=== PATIENT | female | born 2000 | race African-American/Black ===

== ENCOUNTER 2025-06-08 16:59 | Emergency (ER) | payer OTHER ==
[2025-06-08] MEDS ORDERED: Bacitracin 1 PK ONE (17:46)
== END 2025-06-08 18:04 | disposition home or self-care (01) ==
LOC: CSHERS 16:59
DX: T24.111A Burn of first degree of right thigh, initial encounter (principal); X10.1XXA Contact with hot food, initial encounter
CPT/HCPCS: 16000; 99283

== ENCOUNTER 2025-09-23 21:45 | Day surgery (SDC) | payer OTHER ==
[2025-09-23 22:02] VITALS: BMI 34.3
[2025-09-24] MEDS ORDERED: hydrALAZINE 20 MG/ML VIAL SLOW IVP PRN (00:39)
== END 2025-09-24 00:48 | disposition home or self-care (01) ==
LOC: CSHLD/OP 21:45
PROVIDERS: ATTEND Obstetrics & Gynecology
DX: O36.8130 Decreased fetal movements, third trimester, not applicable or unspecified (principal); O99.891 Other specified diseases and conditions complicating pregnancy; R10.20 Pelvic and perineal pain unspecified side; Z3A.30 30 weeks gestation of pregnancy; Z67.30 Type AB blood, Rh positive
CPT/HCPCS: 76819